=== PATIENT | female | born 1985 | race Caucasian/White ===

== ENCOUNTER 2017-08-01 14:08 | Emergency (ER) | payer MEDICAID ==
[~2017-08-01] VITALS: Ht 154.9 cm; Wt 75.7 kg
[2017-08-01 14:49] LABS: HEMATOCRIT 40.8 % (34.6-47.8); HEMOGLOBIN 13.9 g/dL (11.7-16.4); WHITE BLOOD COUNT 10.9 x10^3/uL (3.4-10)
[2017-08-01] MEDS ORDERED: SODIUM CHLORIDE FLUSH 10ML SYR IVF ONE (15:00)
[2017-08-01] MEDS ORDERED: SODIUM CHLORIDE 0.9% 1,000ML IVBOLUS ONE (15:00)
[2017-08-01 15:01] LABS: BLOOD UREA NITROGEN 9 mg/dL (7-18)
[2017-08-01 16:14] VITALS: BP 111/78
== END 2017-08-01 16:29 | disposition home or self-care (01) ==
LOC: ED 16:23
DX: O20.9 Hemorrhage in early pregnancy, unspecified (principal); Z3A.08 8 weeks gestation of pregnancy; J45.909 Unspecified asthma, uncomplicated
CPT/HCPCS: 36415; 76801; 80048; 81001; 82040; 84702; 85025; 86901; 96360; 99285; J7030

== ENCOUNTER 2018-04-18 21:33 | Emergency (ER) | payer MEDICAID ==
[~2018-04-18] VITALS: Ht 160 cm; Wt 87.3 kg
[~2018-04-18 21:33] MED LIST: IBUP-1223 PO
[2018-04-18 21:37] VITALS: BP 116/78
[2018-04-18] MEDS ORDERED: albuterol (21:47)
[2018-04-18] MEDS ORDERED: ALBUTEROL SULFATE 2.5 MG/3 ML ONE (21:56)
[2018-04-18] MEDS ORDERED: ALBUTEROL SULFATE 2.5 MG/3 ML NPPB ONE (22:00)
== END 2018-04-18 22:57 | disposition home or self-care (01) ==
LOC: ED 22:25
DX: J45.21 Mild intermittent asthma with (acute) exacerbation (principal)
CPT/HCPCS: 71046; 93005; 94640; 99284; J7512; J7613